=== PATIENT | male | born 1975 | race Caucasian/White ===

== ENCOUNTER 2021-11-09 09:28 | Emergency (ER) | payer OTHER ==
[~2021-11-09] VITALS: Ht 175.3 cm; Wt 113.4 kg
[~2021-11-09 09:28] MED LIST: NO HOME MEDS
[2021-11-09] MEDS ORDERED: normal saline 1000ML IV soln IVB ONE (10:30)
[2021-11-09] MEDS ORDERED: morphine 4 MG/ML inj SYRINge IV ONE ×2 (10:30→14:20)
[2021-11-09] MEDS ORDERED: iohexol 350MG/ML 100ml bottle IV ONE (10:50)
[2021-11-09] MEDS ORDERED: TETanus/Pertussis (Acell)/Diphther VAC/PF (Tdap-Adult) 0.5ml syringe IMVAC ONE (11:00)
[2021-11-09 11:11] LABS: BASOPHILS # (AUTO) 0.1 X10'3 (0-0.2); EOSINOPHILS # (AUTO) 0.1 X10'3 (0-0.9); EOSINOPHILS % (AUTO) 1.4 % (0-6); HEMATOCRIT 42.2 % (42.0-52.0); HEMOGLOBIN 14.5 g/dl (14.0-17.9); LYMPHOCYTES # (AUTO) 2.1 X10'3 (1.1-4.8); LYMPHOCYTES % (AUTO) 24.4 % (21-51); MEAN CORPUSCULAR HEMOGLOBIN 33.1 PG (27.0-31.0); MEAN CORPUSCULAR HGB CONC 34.3 g/dL (33.0-36.5); MEAN CORPUSCULAR VOLUME 96.4 FL (78-98); MONOCYTES # (AUTO) 0.8 X10'3 (0-0.9); MONOCYTES % (AUTO) 9.6 % (2-12); NEUTROPHILS # (AUTO) 5.4 X10'3 (1.8-7.7); NEUTROPHILS % (AUTO) 63.6 % (42-75); PLATELET COUNT 221 X10'3 (140-440); RED BLOOD COUNT 4.38 X10'6 (4.70-6.10); RED CELL DISTRIBUTION WIDTH 14.3 % (11.5-14.5); WHITE BLOOD COUNT 8.5 X10'3 (4.5-11.0)
--- NOTE | 2021-11-09 11:21 | NUR ---
PATIENT BACK IN THE ROOM FROM CT.C COLLAR IN PLACE.
[2021-11-09 11:37] LABS: ALBUMIN 3.6 G/DL (3.4-5.0); ANION GAP 7 (8-16); BLOOD UREA NITROGEN 16 MG/DL (7-18); BUN/CREATININE RATIO 17.2 (5.4-32.0); CHLORIDE 105 MMOL/L (99-107); CREATININE 0.93 MG/DL (0.60-1.10); GLUCOSE 95 MG/DL (70-104); LIPASE 168 U/L (73-393); SODIUM 139 MMOL/L (135-145); TOTAL CARBON DIOXIDE 27.3 MMOL/L (24-32); eGFR 87 ML/MIN
[2021-11-09 11:42] LABS: POTASSIUM 4.2 MMOL/L (3.5-5.1)
--- NOTE | 2021-11-09 13:27 | NUR ---
Patient is cleared from Trauma per Dr. Engle.Ok to dc c collar.
--- NOTE | 2021-11-09 13:30 | NUR ---
patient requesting prn for pain,Dr. Baca aware.
[2021-11-09] MEDS ORDERED: ketorolac tromethamine 15mg/ml inj. IV ONE (14:20)
[2021-11-09] MEDS ORDERED: ACET-3068 PO (14:43)
[2021-11-09] MEDS ORDERED: CYCL-1 PO (14:43)
[2021-11-09 15:15] LABS: CREATINE KINASE 227 U/L (39-308)
[2021-11-09 16:01] VITALS: BP 151/98
[2021-11-11 06:49] LABS: ISTAT ANION GAP 9 (8-12); ISTAT BUN 18 mg/dL (7-18); ISTAT CL 104 mmol/L (99-107); ISTAT CREATININE 0.8 mg/dL (0.8-1.3); ISTAT GLUCOSE 100 mg/dL (70-104); ISTAT HGB 14.6 g/dl (14.0-17.9); ISTAT Hct 43 %PCV (42-52); ISTAT IONIZED CALCIUM 1.12 mmol/L (1.03-1.32); ISTAT K 4.5 mmol/L (3.5-5.1); ISTAT NA 140 mmol/L (135-145); ISTAT TOTAL CO2 27 mmol/L (24-32); ISTAT eGFR > 90 ML/MIN; POC BUN/CREATININE RATIO 22.5 (5.4-32.0)
== END 2021-11-09 15:55 | disposition home or self-care (01) ==
LOC: ER 09:29
DX: T14.90XA Injury, unspecified, initial encounter (principal); M79.18 Myalgia, other site; I10 Essential (primary) hypertension; F17.200 Nicotine dependence, unspecified, uncomplicated; X58.XXXA Exposure to other specified factors, initial encounter; Y93.89 Activity, other specified; Y92.89 Other specified places as the place of occurrence of the external cause; Y99.8 Other external cause status
CPT/HCPCS: 36415; 71260; 72125; 72128; 72131; 74177; 80048; 82550; 83690; 85025; 96361; 96374; 96375; 96376; 99285; J1885; J2270; J3490; J7030; Q9967; 80047; 90715

== ENCOUNTER 2024-07-11 16:36 | Emergency (ER) | payer OTHER ==
[~2024-07-11] VITALS: Ht 172.7 cm; Wt 134.0 kg
[~2024-07-11 16:36] MED LIST changes: +CYCL-1 PO
--- NOTE | 2024-07-11 17:03 | Physician Documentation ---
History of Present Illness ~ Chief Complaint: Mechanical Fall Stated Complaint: FELL/ALL OVER BODY PAIN Time Seen by MD: 19:55 Primary Medical Doctor: None HPI This 49-year-old male presents with posterior head and neck pain following a fall striking his head while cleaning the inside of a truck 3 days prior, patient reports he was wearing a hard hat when fall occurred believes he may have lost consciousness briefly. Patient reports no significant damage to the hard hat and reports he does not take blood thinners, though patient does report history of heavy alcohol use. Patient reports he has had several episodes of vomiting since the fall. Patient additionally reports generalized pain to his upper back and an area of tenderness to his anterior right chest wall. Patient reports no other acute symptoms or concerns. Tetanus within 5 Years?: No Medication Reconciliation Allergies: Coded Allergies: No Known Allergies (Unverified , 07/11/24) Scheduled PRN Cyclobenzaprine* (Cyclobenzaprine*), 1 TAB PO TID PRN for muscle spasms Miscellaneous Medications Home Med List (No Home Medications), (Reported) Past Medical History Past Medical History: Hypertension Past Surgical History: noncontributory Alcohol Use: Occasionally Drug Use: none Lives with: Family Lives In: Home Review of Systems ROS Posterior head pain, generalized back pain, right-sided chest wall pain as stated above in the HPI, otherwise all systems are reviewed and negative. Physical Exam Vital Signs: Temperature: 98.5, Source: Temporal, Heart Rate: 89, Respiratory Rate: 20, BP: 161/103, Pulse Oximetry: 95, Weight: 134.000 Oxygen Flow Rate: 0 Physical Exam VITALS: Reviewed and as above. GENERAL: Alert, nontoxic appearing, no apparent distress. HEENT: Posterior neck generally tender to palpation without focal C-spine tenderness. PERRLA, EOMI RESPIRATORY: No increased work of breathing, no respiratory distress, speaking in full clear sentences, clear in all lung morales CV: Regular rate and rhythm no murmur CHEST: Mild tenderness to palpation to right lower anterior chest wall without crepitus or paradoxical movement BACK: Mildly tender to palpation without central spinal tenderness Progress Results/Orders Results/Orders Orders - JENNIFER HOFFP Ct Head (07/11/24 17:11) Completed Orders - JENNIFER HOFF [employer] Ct Head (07/11/24 17:11) Vital Signs 07/11/24 07/11/24 07/11/24 07/11/24 16:46 19:50 19:52 20:49 Temp 98.5 98.5 Pulse 89 95 Resp 20 18 18 B/P (MAP) 161/103 144/96 (112) Pulse Ox 95 96 O2 Flow Rate 0 0 EKG/XRAY/CT/US/VASC/MRI CT : Impression CT brain without contrast CLINICAL INDICATION: fall FINDINGS: The study was performed in a multidetector scanner. This study performed taking axial images from the skull base up to the vertex. Both brain and bone windows are photographed. Dose lowering techniques have been used including automated exposure control and adjustment of mA and/or KV according to patient size. Normal and symmetrical shape and density of brain parenchyma above and below the tentorium is seen. There is no mass, midline shift or hydrocephalus. No intra/extra-axial collections demonstrated. There is no intracranial hemorrhage. The calvarium is intact. IMPRESSION: 1. Normal brain and skull. Computed Tomographic Radiation Dosimetry Report: Total CTDI vol = 65 mGy Total DLP = 47934 mGy-cm All CT scans at this medical facility are performed using dose modulation techniques as appropriate to a performed exam including the following: Automated exposure control was utilized; adjustment of the MA and/or KvP according to patient size; and use of iterative reconstruction technique. Electronically Signed by:JULIO CESAR LYON MD Date & Time: 07/11/241719 Dictated by: JULIO CESAR LYON MD Dictation date and time: 07/11/241719 I have reviewed and agree with the radiology report. I have reviewed and interpreted the imaging as: No intracranial hemorrhage Medical Decision Making Findings This 49-year-old male presented with three days of posterior head, posterior neck, upper back, and right lower chest wall pain following a fall backwards striking his head, it was reassuring patient was wearing a hard hat on the fall occurred in the hard hat was reported not to have damage to it. Due to patient reporting several episodes of vomiting after the event a CT of the head was obtained based on [place] head CT rule, head CT did not demonstrate a evidence of intracranial hemorrhage or skull fracture. Based on history and physical symptoms are consistent with concussion. The patient was otherwise well- appearing with remainder of physical exam benign and only notable for mild tenderness to posterior neck, upper back, and right lower chest wall, these areas were without deformity or crepitus. Patient's vital signs are stable is appropriate for outpatient follow up, the pain well controlled in department. Patient provided home care instructions, follow up instructions and return to care precautions. Differential Dx:Considerations: Include: Closed head injury, Fracture(s), Intraabdominal injury, Pneumothorax, Cerebral contusion, Pulmonary contusion, Vascular injury, Contusion(s), Hematoma(s), Laceration(s) Departure Time of Disposition: 20:40 Disposition: 01 HOME / SELF CARE / HOMELESS Impression: Primary Impression: Fall Qualified Codes: W19.XXXA - Unspecified fall, initial encounter Additional Impressions: Concussion Qualified Codes: S06.0X9A - Concussion with loss of consciousness of unspecified duration, initial encounter Acute upper back pain Chest wall pain Head pain Qualified Codes: R51.9 - Headache, unspecified Condition: Improved Discharge Instructions: Concussion, Adult Additional Instructions: Please see the attached concussion care guidelines, you may also reference [facility] concussion care guidelines online. Use ibuprofen and or Tylenol as needed for pain as directed by the [id number] packaging. Please follow up with your primary care provider in the next few days. Please return to the emergency department for any new or worsening concerning symptoms including but not limited to persistent vomiting, confusion, or new weakness or numbness in your arms and legs. Departure Forms: Excuse form Work or School Excused From: Work Excuse beginning now through the following date: Jul 15, 2024 Additional Instructions: May return to work sooner if symptoms improve and feeling well Referrals: NO PRIMARY CARE PROVIDER (PCP) Education Educated: Patient Educated regarding: diagnosis, treatment, prognosis, need for follow up Signature Scribe Signature: No scribe Attestation: The note accurately reflects work and decisions made by me.EMA Simms 07/12/24 02:34 JENNIFER HOFF Jul 11, 2024 17:03
--- NOTE | 2024-07-11 17:23 | RADIOLOGY REPORT ---
CT brain without contrast CLINICAL INDICATION: fall FINDINGS: The study was performed in a multidetector scanner. This study performed taking axial image s from the skull base up to the vertex. Both brain and bone windows are photographed. Dose lowering techniques have been used including automated exposure control and adjustment of mA and /or KV according to patient size. Normal and symmetrical shape and density of brain parenchyma above and below the tentorium is seen. T here is no mass, midline shift or hydrocephalus. No intra/extra-axial collections demonstrated. There is no intracranial hemorrhage. The calvarium is intact. IMPRESSION: 1. Normal brain and skull. Computed Tomographic Radiation Dosimetry Report: Total CTDI vol = 65 mGy Total DLP = 47539 mGy-cm All CT scans at this medical facility are performed using dose modulation techniques as appropriate to a performed exam including the following: Automated exposure control was utilized; adjustment of the M A and/or KvP according to patient size; and use of iterative reconstruction technique.
[2024-07-11 19:50] VITALS: BP 144/96; PULSE 95; O2SAT 96
[2024-07-11 19:52] VITALS: RESP 18
[2024-07-11 20:49] VITALS: TEMP 98.5
== END 2024-07-11 20:50 | disposition home or self-care (01) ==
LOC: ER 16:37
DX: S06.0X0A Concussion without loss of consciousness, initial encounter (principal); R07.89 Other chest pain; M54.6 Pain in thoracic spine; W19.XXXA Unspecified fall, initial encounter; Y93.89 Activity, other specified; Y92.89 Other specified places as the place of occurrence of the external cause; Y99.8 Other external cause status
CPT/HCPCS: 70450; 99284